=== PATIENT | male | born 1945 | race Caucasian/White ===

== ENCOUNTER 2017-08-20 11:03 | Day surgery (SDC) | payer MEDICARE, BC ==
[2017-08-19 13:34] VITALS: BMI 29.0
[2017-08-20] MEDS ORDERED: Dexamethasone 20 MG/5 ML VIAL ONE (11:09)
[2017-08-20] MEDS ORDERED: Ketorolac Tromethamine 30 MG/ML VIAL ONE (11:09)
[2017-08-20] MEDS ORDERED: Lidocaine 1% PF 5 ML VIAL ONE (11:09)
[2017-08-20] MEDS ORDERED: Propofol 200 MG/20 ML VIAL ONE (11:09)
[2017-08-20] MEDS ORDERED: Glycopyrrolate 0.2 MG/ML 5 ML SYRINGE ONE (11:09)
[2017-08-20] MEDS ORDERED: ePHEDrine/0.9% NaCl/PF SYRINGE 50 mg/10 ml ONE (11:09)
[2017-08-20] MEDS ORDERED: PHENYLEPHRINE-NS 100 MCG/ML 10 ML SYRINGE ONE (11:09)
[2017-08-20] MEDS ORDERED: Ondansetron HCl/PF 4 MG/2 ML Vial ONE (11:09)
[2017-08-20 12:14] LABS: #Eosinphils 0.2 thou/uL (0.0-0.7); #Lymphocytes 1.3 thou/uL (1.20-3.40); #Monocytes 0.5 thou/uL (0.11-0.59); #Neutrophils 2.2 thou/uL (1.40-6.50); %Basophils 0.9 % (0.0-1.0); %Eosinophils 4.3 % (0.0-10.0); %Lymphocytes 30.4 % (21.0-51.0); %Monocytes 11.1 % (0.0-10.0); Hematocrit 43.7 % (42.0-52.0); Mean Platelet Volume 7.9 fL (7.4-10.4); Red Blood Cell (RBC) Count 4.65 mill/uL (4.70-6.10); White Blood Cell (WBC) Count 4.1 thou/uL (4.8-10.8)
[2017-08-20 12:35] LABS: Anion Gap 12 mmol/L (10-20); BUN (Urea Nitrogen) 19 mg/dL (8.4-25.7); Calc. Creatinine Clearance 81 mL/min (70-130); Calcium 9.9 mg/dL (7.8-10.44); Carbon Dioxide 27 mmol/L (23-31); Chloride 104 mmol/L (98-107); Estimated GFR-MDRD 76
[2017-08-20] MEDS ORDERED: Bupivacaine PF 0.5% 30 ML VIAL ONE (12:49)
[2017-08-20] MEDS ORDERED: Fentanyl 100 MCG/2 ML VIAL ONE (13:03)
--- NOTE | 2017-08-20 16:46 | EKG ---
Test Reason : PREOP Blood Pressure : / mmHG Vent. Rate : 062 BPM Atrial Rate : 062 BPM P-R Int : 170 ms QRS Dur : 094 ms QT Int : 428 ms P-R-T Axes : 064 006 148 degrees QTc Int : 434 ms Sinus rhythm with marked sinus arrhythmia Possible Left atrial enlargement Possible Inferior infarct , age undetermined Abnormal ECG Confirmed by TAMIKO GONZALEZ ([id number]) on 08/20/2017 4:46:00 PM Referred By: GEOVANY Confirmed By:TAMIKO GONZALEZ
--- NOTE | 2017-08-20 17:04 | OP ---
DATE OF SURGERY: 08/20/2017 PREOPERATIVE DIAGNOSES: 1. Left carpal tunnel syndrome. 2. Left cubital tunnel syndrome. 3. Left ring finger trigger. POSTOPERATIVE DIAGNOSES: 1. Left carpal tunnel syndrome. 2. Left cubital tunnel syndrome. 3. Left ring finger trigger. SURGICAL PROCEDURE: 1. Left carpal tunnel release. 2. Left cubital tunnel decompression. 3. Left ring finger trigger release. ANESTHESIA: General. SURGEON: Yuri Arana M.D. TOURNIQUET TIME: 21 minutes at 250 mmHg. COMPLICATIONS: None. DRAINS: None. SPECIMEN: None. OUTCOME: Satisfactory. INDICATIONS: The patient is a very pleasant 72-year-old gentleman with a history of bilateral hand n umbness with EMG nerve conduction study showing evidence of left carpal tunnel syndrome and left cubi candice tunnel syndrome. The patient also is having problems with triggering of the left ring finger. Germain mckeon has had a similar procedure performed on the right side with excellent outcome. He now desire s to have left side decompressed and the trigger finger released. Informed consent has been obtained . I believe all questions answered. PROCEDURE IN DETAIL: A timeout was performed and then patient was placed under general endotracheal anesthesia. A sterile prep and drape was then performed of the left upper extremity. Next, attentio n was placed at the elbow. A linear incision was made overlying the medial epicondyle. After skin w as sharply incised, dissection was carried down bluntly to protect the cutaneous nerve branches. Nex t, dissection was carried down to the underlying cubital tunnel. Proximal to the cubital tunnel, the nerve was identified. The aponeurosis of the cubital tunnel itself was then divided and the dissect ion carried down into the flexor muscle belly distally. A full decompression of the nerve was obtain ed. The nerve was also decompressed proximally. It should be noted there were some very tight bands distally that I believe were the source of this gentleman's cubital tunnel syndrome, as well as a va scular anastomosis draped over the nerve distally. Once decompressed, the elbow was brought through range of motion. There was no subluxation of the nerve, and as such transposition not felt to be nec essary. The wound was then irrigated with normal saline and closed with 2-0 Vicryl subcutaneously an d then 4-0 nylon for the skin. Next, attention was placed at the wrist. The limb was then exsanguin ated with Esmarch bandage, tourniquet inflated to filled 250 mmHg. A curvilinear incision was made f ollowing the thenar skin crease. After skin was sharply incised, dissection was carried down bluntly to the underlying palmar fascia. This was split longitudinally in line with the skin incision. The transverse carpal ligament was then identified and divided using a [place] blade over its entire widt h. Dissection was then carried further proximally using tenotomy scissors. The floor of the carpal tunnel was identified and found to be free of any bony prominences. The nerve itself was mobilized a nd the motor branch identified. This wound was irrigated with normal saline and then closed with a s alex layer of 4-0 nylon in horizontal mattress fashion. Finally, the left index finger was addressed. A transverse incision was made at the distal palmar sk in crease overlying the neck of the ring finger metacarpal. After the skin was sharply incised, diss ection was carried down bluntly until the underlying A1 shanda was identified. The shanda was divide d using a [place] blade, taking care not to endanger the neurovascular bundle, crossing more proximall y. Once the A1 shanda was further divided, the finger was brought through range of motion and no tri ggering was encountered. This wound also was irrigated with bulb syringe and then closed with 4-0 ny asiya in horizontal mattress fashion. At the completion of surgery, the arm was dressed with Xeroform, Webril, and gauze. Tourniquet was let down at the completion of dressing and patient was transferre d to recovery room in stable condition. There were no complications. Patient tolerated the procedur e well.
== END 2017-08-20 17:09 | disposition home or self-care (01) ==
LOC: SDC 11:03
PROVIDERS: ATTEND Orthopaedic Surgery
PROC: 01N50ZZ Release Median Nerve, Open Approach (ICD-10-PCS; principal; 2017-08-20)
PROC: 01N40ZZ Release Ulnar Nerve, Open Approach (ICD-10-PCS; 2017-08-20)
PROC: 0LN80ZZ Release Left Hand Tendon, Open Approach (ICD-10-PCS; 2017-08-20)
DX: G56.02 Carpal tunnel syndrome, left upper limb (principal); G56.22 Lesion of ulnar nerve, left upper limb; M65.342 Trigger finger, left ring finger; I25.10 Atherosclerotic heart disease of native coronary artery without angina pectoris; I10 Essential (primary) hypertension; E78.5 Hyperlipidemia, unspecified; K21.9 Gastro-esophageal reflux disease without esophagitis; G47.30 Sleep apnea, unspecified; M19.90 Unspecified osteoarthritis, unspecified site; Z99.89 Dependence on other enabling machines and devices; Z79.02 Long term (current) use of antithrombotics/antiplatelets; Z79.82 Long term (current) use of aspirin; Z79.51 Long term (current) use of inhaled steroids; Z79.899 Other long term (current) drug therapy; Z88.5 Allergy status to narcotic agent; Z91.018 Allergy to other foods; Z96.1 Presence of intraocular lens; Z96.652 Presence of left artificial knee joint; Z95.1 Presence of aortocoronary bypass graft; Z98.890 Other specified postprocedural states
CPT/HCPCS: 80048; 85025; 93005; 93010; J1100; J1885; J2001; J2405; J2704; J3010; S0020